=== PATIENT | female | born 1935 | race Caucasian/White ===

== ENCOUNTER 2017-03-14 10:44 | Emergency (ER) | payer BC ==
[~2017-03-14 10:44] MED LIST: ACET500CAP PO; ADCIRCA20 MG PO; AMB10 PO; ASAB PO; BENICAR20 PO; C25 PO; C5 PO; CALTRA600D PO; CYANO1000T PO; FISH-EPA1000 MG PO; GLUCPH8 PO; GLUCXL2.5 PO; JANTOVEN1 MG PO; JANTOVEN4 MG PO; JANTOVEN5 MG PO; KLONO5 PO; L40 PO; LAN125 PO; LEVEMFLXPN SC; LEVEMIR SC; MIRAPEX250 PO; MIRAPEX5 PO; MONODOX100 MG PO; NEUR600 PO; NORV5 PO; NTG150 SL; NYSTOP100000 MG TOP; OMEGA 3; OMEGA 3 PO; OMEGA 3550 MG PO; PLAVIX PO; PRAVAC PO; PROTONIX PO; PROZAC PO; SYN1 PO; TOPXL25 PO; ULTRAM50 PO; VENTOLIN HFA INH; VITAMIN B-121000 MC1 PO; VITAMIN B-1500 MG PO; VITAMIN D1000 UNI1 PO; Z300 PO; ZOCOR20 PO
[2017-03-14 13:49] LABS: BASOPHILS 0 %; EOSINOPHILS ABSOLUTE 0.34 10/3/uL (0.0-0.53); ER CBC TAT 0 Hrs 05 Mins; HEMATOCRIT 37.1 % (36.0-48.0); HEMOGLOBIN 12.2 g/dL (12.0-16.0); IMMATURE GRANULOCYTES 0.3 %; IMMATURE GRANULOCYTES ABSOLUTE 0.02 10/3/uL (0.0-0.11); LYMPHOCYTES 19.6 %; LYMPHOCYTES ABSOLUTE 1.33 10/3/uL (0.67-4.30); MEAN CORPUS HGB CONC 32.9 g/dL (32.0-36.0); MEAN CORPUSCULAR VOLUME 94.2 fL (80-100); MONOCYTES 7.7 %; MONOCYTES ABSOLUTE 0.52 10/3/uL (0.21-1.20); NEUTROPHILS 67.4 %; NEUTROPHILS ABSOLUTE 4.58 10/3/uL (2.02-8.40); PLATELET COUNT 172 10/3/uL (150-400); RBC DISTRIBUTION WIDTH 17.7 % (12.0-16.0); RED CELL COUNT 3.94 10/6/uL (4.0-5.6); WHITE BLOOD CELLS 6.8 10/3/uL (4.5-10.5)
[2017-03-14 13:50] LABS: MANUAL DIFF NO %
[2017-03-14 14:03] LABS: A/G RATIO 0.6 (0.7-1.9); ALBUMIN 3.4 G/DL (3.5-5.0); ALKALINE PHOSPHATASE 85 U/L (45-117); CALCIUM, SERUM 10.5 MG/DL (8.5-10.4); CHLORIDE, SERUM 116 MMOL/L (96-112); CREATININE 2.35 MG/DL (0.55-1.02); GFR AFRICAN AMERICAN 22 ML/MIN (>=60); GFR NON AFRICAN AMERICAN 19 ML/MIN (>=60); GLOBULIN 5.4 G/DL (2.5-4.1); GLUCOSE, SERUM 90 MG/DL (60-99); POTASSIUM, SERUM 5.1 MMOL/L (3.5-5.3); SGOT(AST) 16 U/L (5-40); SGPT(ALT) 14 U/L (5-65); SODIUM, SERUM 140 MMOL/L (135-148); TOTAL BILIRUBIN 0.5 MG/DL (0-1.2); TOTAL PROTEIN 8.8 G/DL (6.0-8.5)
[2017-03-14 14:07] LABS: BUN (BLOOD UREA NITROGEN) 79 MG/DL (6-23); CO2 (CARBON DIOXIDE) 19 MMOL/L (24-34)
[2017-03-14 14:22] LABS: TROPONIN I < 0.02 NG/ML (<0.05)
[2017-03-14 17:31] LABS: WBC (NOT ORDERED) (RFLEX) 0 (0-5)
[2017-03-14 17:40] LABS: ASCORBIC ACID (UR NOT ORDER) NEG (NEG); BILIRUBIN, URINE NEGATIVE (NEG); ER URINALYSIS TAT 0 Hrs 10 Mins; KETONE, URINE NEGATIVE (NEG); LEUKOCYTE ESTERASE(NOT OR NEG (NEG); NITRITE (URINE) NEG (NEG)
== END 2017-03-14 19:07 | disposition home or self-care (01) ==
LOC: ER 10:44
PROVIDERS: Emergency Medicine
DX: R19.7 Diarrhea, unspecified (principal); I27.2 Other secondary pulmonary hypertension; I50.30 Unspecified diastolic (congestive) heart failure; I25.10 Atherosclerotic heart disease of native coronary artery without angina pectoris; I48.91 Unspecified atrial fibrillation; I73.9 Peripheral vascular disease, unspecified; N18.9 Chronic kidney disease, unspecified; Z95.5 Presence of coronary angioplasty implant and graft; Z88.1 Allergy status to other antibiotic agents; Z88.2 Allergy status to sulfonamides; Z88.8 Allergy status to other drugs, medicaments and biological substances; Z79.899 Other long term (current) drug therapy
CPT/HCPCS: 71010; 80053; 81001; 83690; 84484; 85025; 87493; 87493-59; 96374; 99284; J2405